=== PATIENT | male | born 1970 | race African-American/Black ===

== ENCOUNTER 2016-07-31 23:10 | Emergency (ER) | payer SELFPAY ==
[~2016-07-31] VITALS: Ht 190.5 cm; Wt 83.9 kg
[~2016-07-31 23:10] MED LIST: IBUP200T5 PO
[2016-07-31] MEDS ORDERED: DIPHTH,PERTUSS(ACELL),TET TOX 0.5 ML DISP.SYRIN. VAX IM ONE (23:30)
[2016-07-31] MEDS ORDERED: LIDOCAINE 2% 20 ML VIAL. IJ ONE (23:30)
--- NOTE | 2016-07-31 23:58 | PHYS DOC ---
General Chief Complaint: LACERATION/AVULSION Stated Complaint: HAND LAC Time Seen by MD: 23:12 Source: patient Exam Limitations: no limitations Problems: History of Present Illness Initial Comments Pt is 46/M to ED with SO for right thumb laceration. Immediately prior to arrival while toasting glasses of wine pt states glass broke cutting right thumb. Pain initially but resolved, bled profusely initially still bleeding with pressure on arrival. Needs Td, no numbness/ tingling/weakness/radiating sx pt has FROM at right 1st MCP/IP joints. Onset: just prior to arrival Severity: moderate Pain/Injury Location: right thumb Method of Injury: incised Modifying Factors: worse with jarring, worse with movement, improves with rest Allergies: Coded Allergies: No Known Drug Allergies (Unverified , 04/09/13) Past Medical History Medical History: no pertinent history Surgical History: noncontributory Social History Smoker: cigarettes Alcohol: occasionally Drugs: none Review of Systems Constitutional: denies chills, denies fever Respiratory: denies cough, denies shortness of breath Cardiovascular: denies chest pain, denies palpitations Gastrointestinal: denies nausea, denies vomiting Musculoskeletal: see HPI Skin: see HPI Psychiatric/Neurological: see HPI Physical Exam General Appearance: no apparent distress HEENT: normal ENT inspection Neck: non-tender, supple Cardiovascular/Respiratory: normal peripheral pulses, no respiratory distress Hand: laceration (deep clean irregular laceration right thumb essentially wrapping palmar 1/2 of circumference running near ant joint line. No FB, no pulsatile bleeding, thumb is NV intact) Neurologic/Tendon: normal sensation, normal motor functions, normal tendon functions, responds to pain, no evidence tendon injury Psychiatric: alert, oriented x 3 Skin: normal color, warm/dry (R thumb as above) Laceration/Wound Repair Laceration/Wound Repair : Wound Location: upper extremity (right thumb) Wound's Depth, Shape: into muscle, irregular, flap Wound Length (cm): 3 Wound Explored: clean Irrigated w/ Saline (ccs): 150 Betadine Prep?: Yes Anesthesia: 1% Lidocaine Volume Anesthetic (ccs): 4 Wound Debrided: minimal Wound Repaired With: sutures Suture Size/Type: 3:0, nylon Number of Sutures: 6 Sterile Dressing Applied?: Yes Splint Applied?: Yes Type of Splint Applied: metal finger Progress Informed consent. Cleansed by RN, analgesia with lidocaine. Edges approximated with 6 3-0 ethilon no complications tolerated well. Metal finger splint/sterile dressing applied, digit NV intact after splint checked by me. See departure for wound care. Orders, Labs, Meds Td, rocephin given Advised to stop smoking Departure Time of Disposition: 23:55 Disposition: 01 HOME, SELF-CARE Diagnosis: right thumb laceration Condition: GOOD Patient Instructions: RICE - Routine Care for Injuries, [id number], Splint Care, [id number], Sutured Wound Care, [id number] Additional Instructions: NEELA, see handout. OTC tylenol as needed. Rx: cephalexin, norco 5mg #10 Wear metal finger splint at least seven days. No use right hand until cleared by doctor. Keep wound dry for 48 hours, and keep covered until healed completely. After 48 hours may begin to wash briefly twice daily with soap and warm water, blot dry. Change dressing each wash, allow wound to air dry one hour daily. Follow up with your doctor in 3 days for wound check. Follow up with your doctor or return to ED in 12-14 days for suture removal. Return to ED with new or changing symptoms. CATHERINE HILL DO Jul 31, 2016 23:58
[2016-08-01] MEDS ORDERED: HYDR-971 PO
[2016-08-01] MEDS ORDERED: CEPH500C PO
[2016-08-01] MEDS ORDERED: CEFTRIAXONE SODIUM 1 GM VIAL IV ONE (00:12)
[2016-08-01] MEDS ORDERED: ACETAMINOPHEN/CODEINE 300/30MG 4TABLET STARTPACK. PO ONE ×2 (00:12→00:30)
[2016-08-01 00:20] VITALS: BP 122/72
[2016-08-01] MEDS ORDERED: CEFTRIAXONE IM 1 GM VIAL. IM ONE (00:30)
[2016-08-01] MEDS ORDERED: HYDROCODONE/APAP 5/325MG TABLET. PO ONE (00:30)
== END 2016-08-01 00:25 | disposition home or self-care (01) ==
LOC: ER 23:10
DX: S61.011A Laceration without foreign body of right thumb without damage to nail, initial encounter (principal); F17.210 Nicotine dependence, cigarettes, uncomplicated; W25.XXXA Contact with sharp glass, initial encounter; Y93.89 Activity, other specified; Y99.8 Other external cause status; Y92.89 Other specified places as the place of occurrence of the external cause
CPT/HCPCS: 12002; 90471; 90715; 96372; 99284; J0696; J2001